=== PATIENT | female | born 1940 | race Caucasian/White ===

== ENCOUNTER → 2020-09-28 14:17 | Outpatient (CLI) | payer MEDICARE, SELFPAY ==
[2020-09-28] MEDS: COVID-19 VACC #1, MRNA(MOD) 100 MCG/0.5 ML VIAL IM (14:27)
== END ==
PROVIDERS: Visit Provider Internal Medicine
DX: Z23 Encounter for immunization (principal)
CPT/HCPCS: 0011A; 91301

== ENCOUNTER → 2021-04-24 13:18 | Outpatient (CLI) | payer OTHER, SELFPAY ==
[2021-04-24 16:10] LABS: COVID19 -Nasal RAPID Negative (Negative)
== END ==
PROVIDERS: Visit Provider Nurse Practitioner Family
DX: Z20.822 Contact with and (suspected) exposure to COVID-19 (principal); Z01.812 Encounter for preprocedural laboratory examination
CPT/HCPCS: 87635; C9803

== ENCOUNTER 2021-04-25 09:13 | Day surgery (SDC) | payer OTHER, SELFPAY ==
[2021-04-25] MEDS: PROPARACAINE 0.5% OPHTH SOL 2 DROPS EYE-OP (10:17)
[2021-04-25 10:19] VITALS: BP 222/91; PULSE 98; RESP 16; TEMP 36.7; O2SAT 99; BMI 25.7
--- NOTE | 2021-04-25 10:55 | SUR.PREOP ---
anesthesia conversing with patient regarding elevated BP. taken x4 with the following results: 233/101, 222/91, 222/93, 222/99. procedure has been canceled due to BP. Long discussion with MDA. questions invited and answered. states understanding.
== END 2021-04-25 11:15 | disposition home or self-care (01) ==
PROVIDERS: Referring Provider Ophthalmology; Visit Provider Ophthalmology
DX: H25.12 Age-related nuclear cataract, left eye (principal); Z53.09 Procedure and treatment not carried out because of other contraindication
CPT/HCPCS: 66984

== ENCOUNTER → 2025-04-08 14:19 | Outpatient (CLI) | payer OTHER, MEDICARE, SELFPAY ==
--- NOTE | 2025-04-08 14:24 | DI.ECHO.S_ITS ---
[facility] +---------+ [facility] : : [address] : : [place] : : [id number] : : Phone: [phone] Echocardiogram Report + + :Name: SHADIA SWANSON Study Date: 04/08/2025 Height: 62 in : :Hospital ReadingLocation: Weight: 132 lb : : Gender: Female BSA: 1.6 m2 : :: 1940 Age: 85 yrs BP: 201/88 mmHg: :Reason For Study: MURMUR : :Ordering Physician: MARYURI, : :MARY BETH Performed By: Jesu Cates : :Referring: MARY BETH WAHL : + + Interpretation Summary - The left ventricular contractility is hyperdynamic. Estimated ejection fraction is greater than 65% with no segmental wall motion abnormalities. Mild asymmetrical septal hypertrophy without obvious obstruction. Indeterminant diastolic function. False tendons noted. - The right ventricular contractility is normal. - Mild left atrial enlargement. All of the cardiac chambers are of normal size. - Trace to mild aortic insufficiency. - No obvious intracardiac shunts. - No obvious intracardiac masses nor thrombi. - No hemodynamically significant pericardial effusion. - Low right-sided filling pressures. Conclusion: Hyperdynamic left ventricular systolic function with trace to mild aortic insufficiency. When compared with previous echocardiogram, there is now aortic insufficiency present. Procedure: A two-dimensional transthoracic echocardiogram with color flow and Doppler was performed. The study quality was technically adequate. Comparison is made with the echocardiogram of 06/29/2016. The patient was in normal sinus rhythm during the exam. Left Ventricle: The left ventricle is normal in size. There is mild asymmetric left ventricular hypertrophy. A false chord is noted (normal variant). The ejection fraction is estimated to be 65-70%. There are no focal wall motion abnormalities. Diastolic function is indeterminate. Right Ventricle: The right ventricle is normal in size and function. Atria: The left atrium is mildly dilated. Right atrial size is normal. There is no Doppler evidence for an interatrial shunt. Mitral Valve: There is mild mitral annular calcification. The mitral valve leaflets appear normal. There is no evidence of stenosis, fluttering, or prolapse. There is trace mitral regurgitation. Aortic Valve: The aortic valve is trileaflet. The aortic valve opens well. The aortic valve is slightly calcified. There is mild aortic regurgitation. Tricuspid Valve: The tricuspid valve leaflets are thin and pliable. No tricuspid regurgitation. Pulmonic Valve: The pulmonic valve is not well seen, but is grossly normal. There is no pulmonic valvular regurgitation. Great Vessels: The aortic root is normal size. The dimensions of the ascending aorta are normal. The pulmonary artery is not well visualized, but is probably normal size. The IVC is of normal diameter and collapses greater than 50% with a sniff. This suggests a low right atrial pressure of 3 mm Hg. Pericardium/ Pleura There is no pericardial effusion. There is no pleural effusion. MMode/2D Measurements & Calculations LVIDd: 4.2 cm LVOT diam: 1.8 cm LVIDs: 2.7 cm Ao root diam: 2.9 cm FS: 35.8 % asc Aorta Diam: 3.0 cm EPSS: 0.64 cm Ao Arch Diam (Prox Trans): 1.8 cm IVSd: 1.2 cm LVPWd: 1.0 cm LV rivero. diameter/BSA (cm/m^2): 2.6 LV sys. diameter/BSA (cm/m^2): 1.7 LA A2 area: 19.5 cm2 RA long axis: 5.1 cm LA A4 area: 18.6 cm2 RA area: 11.6 cm2 LA length (vol): 5.0 cm RA vol: 22.8 ml LA vol: 61.5 ml RA : 14.2 ml/m2 LA vol index: 38.4 ml/m2 IVC diam: 1.7 cm RVD1 (basal): 3.1 cm RVD2 (mid): 2.7 cm TAPSE: 2.2 cm Doppler Measurements & Calculations Ao V2 max: 219.0 cm/sec LVOT Max Delmar: 116.7 cm/sec Ao V2 mean: 144.2 cm/sec LV V1 max P.4 mmHg Ao max P.2 mmHg LV V1 VTI: 24.9 cm Ao mean P.5 mmHg GÓMEZ(I,D): 1.5 cm2 Ao V2 VTI: 42.3 cm GÓMEZ(V,D): 1.4 cm2 sev ratio: 0.59 GÓMEZ indexed to BSA (cm^2/m^2): 0.94 MV E max delmar: 87.9 cm/sec PA V2 max: 147.2 cm/sec MV A max delmar: 133.6 cm/sec PA V2 mean: 107.8 cm/sec MV E/A: 0.66 PA mean P.1 mmHg Med Peak E' Delmar: 6.0 cm/sec PA pr(Accel): 41.3 mmHg E/E' med: 14.7 Lat Peak E' Delmar: 7.3 cm/sec E/E' lat: 12.0 E/e' average: 13.4 MV dec time: 0.22 sec SV(ADELINA): 64.0 ml Reading Physician:KATHE
== END ==
LOC: ECHO 14:22
PROVIDERS: PCP Family Medicine; Referring Provider Family Medicine; Visit Provider Family Medicine
DX: I34.81 Nonrheumatic mitral (valve) annulus calcification (principal); I35.1 Nonrheumatic aortic (valve) insufficiency; R01.1 Cardiac murmur, unspecified; I10 Essential (primary) hypertension
CPT/HCPCS: 93306

== ENCOUNTER → 2025-04-13 07:50 | Outpatient (CLI) | payer OTHER, SELFPAY ==
--- NOTE | 2025-04-13 07:53 | DI.US.S_ITS ---
PROCEDURE: US RENAL DOPPLER INDICATIONS: screening, new diagnosis of hypertension TECHNIQUE: Real time scanning was performed of both kidneys, followed by Color and pulsed Doppler interrogation of the renal vessels. COMPARISON: None. FINDINGS: Aortic peak systolic velocity: 93 cm/s. Right side: Cary-scale imaging: Kidney is a 0.5 cm long. No hydronephrosis. No nephrolithiasis. Renal cortex is increased in echogenicity. No suspicious solid renal masses. Exophytic 2 point 8 cm cyst in the lower pole. Proximal renal artery peak systolic velocity: 161 cm/s. Mid renal artery peak systolic velocity: 425 cm/s. Distal renal artery peak systolic velocity: 142 cm/s. Renal vein: Patent, without thrombus. Peak renal/aortic ratio (RAR): 4.5 Left side: Cary-scale imaging: Kidney is 9.2 cm long. No hydronephrosis. No nephrolithiasis. Renal cortex is normal in echogenicity. No suspicious solid renal masses. Left peripelvic 1.3 cm cyst. Multifocal thinning of the upper pole cortex, likely sequela of prior infection/inflammation/infarction. Echogenic renal pyramids. Proximal renal artery peak systolic velocity: 107 cm/s. Mid-renal artery peak systolic velocity: 186 cm/s. Distal renal artery peak systolic velocity: 167 cm/s. Renal vein: Patent, without thrombus. Peak renal/aortic ratio (RAR): 2 Additional findings: Wall echo shadow sign of the gallbladder. IMPRESSION: 1. 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 If indicated, this could be further evaluated with CT angiogram of the abdomen. 2. Stone filled gallbladder without sonographic acute cholecystitis Dictated by: Valeriano Pack M.D. on 04/13/2025 at 12:46 Approved by: Valeriano Pack M.D. on 04/13/2025 at 12:51
== END ==
LOC: US 07:52
PROVIDERS: PCP Family Medicine; Referring Provider Family Medicine; Visit Provider Family Medicine
DX: N28.1 Cyst of kidney, acquired (principal); K80.20 Calculus of gallbladder without cholecystitis without obstruction; I10 Essential (primary) hypertension
CPT/HCPCS: 93975

== ENCOUNTER → 2025-05-06 09:08 | Outpatient (CLI) | payer OTHER, SELFPAY ==
[2025-05-06 09:54] LABS: Hematocrit 36.2 % (36-46); Hemoglobin 12.7 g/dL (12.0-16.0)
[2025-05-06 10:22] LABS: Blood Urea Nitrogen 12 mg/dL (7-17); Calcium 9.7 mg/dL (8.4-10.2); Carbon Dioxide 24 mmol/L (22-32); Chloride 101 mmol/L (98-107); Estimated Glomerular Filt Rate > 60 mL/min (>60); Glucose 95 mg/dL (70-99); HEMOLYSIS < 15 (0-50); Potassium 4.3 mmol/L (3.4-5.1); Sodium 134 mmol/L (137-145)
[2025-05-06 14:29] LABS: Protein (Total) Urine Random 66 mg/dL (0-12); Protein Creatinine Ratio Urine 0.87 GRAM/24H
== END ==
PROVIDERS: PCP Family Medicine; Referring Provider Student in an Organized Health Care Education/Training Program; Visit Provider Student in an Organized Health Care Education/Training Program
DX: N05.9 Unspecified nephritic syndrome with unspecified morphologic changes (principal); R80.9 Proteinuria, unspecified; D63.1 Anemia in chronic kidney disease
CPT/HCPCS: 36415; 80048; 82570; 84156; 85014; 85018

== ENCOUNTER → 2025-06-09 13:10 | Outpatient (CLI) | payer OTHER, SELFPAY ==
[2025-06-09 14:51] LABS: Alanine Aminotransferase 16 IU/L (<35); Albumin 4.4 g/dL (3.5-5.0); Albumin Globulin Ratio 1.8 (1.0-2.8); Alkaline Phosphatase 70 U/L (38-126); Blood Urea Nitrogen 17 mg/dL (7-17); Calcium 9.8 mg/dL (8.4-10.2); Carbon Dioxide 25 mmol/L (22-32); Chloride 100 mmol/L (98-107); Estimated Glomerular Filt Rate > 60 mL/min (>60); Globulin 2.5 g/dL (1.7-4.1); Glucose 94 mg/dL (70-99); HEMOLYSIS < 15 (0-50); Potassium 4.6 mmol/L (3.4-5.1); Sodium 135 mmol/L (137-145); Total Protein 6.9 g/dL (6.3-8.2)
[2025-06-09 15:20] LABS: TSH w/ Reflex to FT4 1.45 uIU/mL (0.47-4.68)
[2025-06-09 15:51] LABS: Protein (Total) Urine Random 49 mg/dL (0-12); Protein Creatinine Ratio Urine 1.43 GRAM/24H
== END ==
PROVIDERS: PCP Family Medicine; Referring Provider Student in an Organized Health Care Education/Training Program; Visit Provider Student in an Organized Health Care Education/Training Program
DX: I10 Essential (primary) hypertension (principal); N05.9 Unspecified nephritic syndrome with unspecified morphologic changes; R80.9 Proteinuria, unspecified; R01.1 Cardiac murmur, unspecified
CPT/HCPCS: 36415; 80053; 82570; 84156; 84443